=== PATIENT | female | born 1945 | race Caucasian/White ===

== ENCOUNTER 2022-03-13 11:56 | Emergency (ER) | payer MEDICARE ==
[~2022-03-13 11:56] MED LIST: ASPIRIN ADULT L81 M2 PO; BISOPROLOL/HCTZ1 TA2 PO; CLARITIN10 MG PO; CRESTOR20 M1 PO; FISH OIL500 M1 PO; LEVOTHYROXIN0.125 M1 PO; LISINOPRIL10 M1 PO; VITAMIN C500 M4 PO; VITAMIN D1000 IU PO
== END 2022-03-13 14:40 | disposition home or self-care (01) ==
LOC: ED 11:56
DX: S60.211A Contusion of right wrist, initial encounter (principal); Z88.6 Allergy status to analgesic agent; Z79.899 Other long term (current) drug therapy; Z98.51 Tubal ligation status; Z90.49 Acquired absence of other specified parts of digestive tract; Z90.710 Acquired absence of both cervix and uterus; Z98.890 Other specified postprocedural states; Z90.89 Acquired absence of other organs; Z87.891 Personal history of nicotine dependence; W23.0XXA Caught, crushed, jammed, or pinched between moving objects, initial encounter; Y93.89 Activity, other specified; Y92.89 Other specified places as the place of occurrence of the external cause; Y99.8 Other external cause status

== ENCOUNTER 2023-03-22 10:47 | Emergency (ER) | payer MEDICARE ==
[~2023-03-22] VITALS: Ht 152.4 cm; Wt 60.8 kg
[2023-03-22] MEDS ORDERED: CYCLOBENZAPRINE5 M3 PO (11:28)
[2023-03-22] MEDS ORDERED: ALEVE220 MG PO (11:28)
== END 2023-03-22 11:55 | disposition home or self-care (01) ==
LOC: ED 10:47
DX: S16.1XXA Strain of muscle, fascia and tendon at neck level, initial encounter (principal); M25.511 Pain in right shoulder; I10 Essential (primary) hypertension; E78.5 Hyperlipidemia, unspecified; Z88.8 Allergy status to other drugs, medicaments and biological substances; Z90.49 Acquired absence of other specified parts of digestive tract; Z90.89 Acquired absence of other organs; Z90.710 Acquired absence of both cervix and uterus; Z87.891 Personal history of nicotine dependence; X50.1XXA Overexertion from prolonged static or awkward postures, initial encounter; Y93.89 Activity, other specified; Y92.89 Other specified places as the place of occurrence of the external cause; Y99.8 Other external cause status